=== PATIENT | female | born 1985 | race Caucasian/White ===

== ENCOUNTER → 2017-12-28 | Outpatient (REF) | payer BC ==
[2017-12-28 17:01] LABS: APPEARANCE, URINE TURBID (CLEAR); BACTERIA, URINE AUTO 1+ (NEGATIVE); BILIRUBIN, URINE AUTO NEGATIVE (NEGATIVE); BLOOD, URINE BLOOD 3+ (NEGATIVE); COLOR, URINE YELLOW (YELLOW); GLUCOSE, URINE (UA) AUTO NEGATIVE (NEGATIVE); KETONE, URINE AUTO NEGATIVE (NEGATIVE); LEUKOCYTE ESTERASE, URINE AUTO 3+ (NEGATIVE); MUCUS, URINE SMALL (NEGATIVE); NITRITE, URINE AUTO NEGATIVE (NEGATIVE); PROTEIN, URINE AUTO 2+ mg/dL (NEGATIVE); RBC, URINE AUTO TNTC /HPF (0-3); SPECIFIC GRAVITY URINE AUTO 1.024 (1.002-1.035); SQUAMOUS EPITHELIAL CELL UR AU 4 /HPF (0-6); UROBILINOGEN, URINE AUTO 0.2 mg/dL (0.0-2.0); WBC, URINE AUTO TNTC /HPF (0-3)
== END ==
LOC: M LAB REF 15:58
DX: N39.0 Urinary tract infection, site not specified (principal)
CPT/HCPCS: 81001

== ENCOUNTER → 2019-10-19 | Outpatient (CLI) | payer BC ==
[~2019-10-19] MED LIST: ANUS2.5C2 TOP; DOCU5LIQ PO; IBUP100S44 PO; MAPA500T17 PO; MILK10SU PO
[2019-10-19 16:02] LABS: BASO % 0.2 % (0.0-1.0); EOS # 0.2 10^3/uL (0.0-0.5); EOS % 1.8 % (0.0-3.0); HEMATOCRIT 39.1 % (36.0-47.0); HEMOGLOBIN 13.3 g/dl (12.0-15.5); LYMPH # 1.7 10^3/uL (1.5-5.0); LYMPH % 17.5 % (24.0-44.0); MEAN CORPUSCULAR HEMOGLOBIN 29.6 pg (27.0-33.0); MEAN CORPUSCULAR VOLUME 87.1 fl (80.0-96.0); MONO # 0.5 10^3/uL (0.0-0.8); MONO % 5.1 % (0.0-5.0); NEUTROPHILS # 7.1 10^3/uL (1.5-8.5); NEUTROPHILS % 75.2 % (36.0-66.0); PLATELET COUNT, AUTOMATED 279 10^3/uL (150-450); RED BLOOD COUNT 4.49 10^6/uL (4.00-5.40); WHITE BLOOD COUNT 9.5 10^3/uL (4.0-10.0)
[2019-10-19 18:15] LABS: HEPATITIS C VIRUS ABY INDEX 0.3 INDEX (<0.8); HIV 1&2 SCREEN CENTAUR NEGATIVE (NEGATIVE)
[2019-10-19 20:00] LABS: CHLAMYDIA DNA AMPLIFICATION NEGATIVE (NEGATIVE); GC DNA AMPLIFICATION NEGATIVE (NEGATIVE)
== END ==
LOC: M PLALAB 11:03
PROVIDERS: ATTEND Advanced Practice Midwife
DX: O09.522 Supervision of elderly multigravida, second trimester (principal); Z3A.00 Weeks of gestation of pregnancy not specified

== ENCOUNTER → 2019-10-31 | Outpatient (CLI) | payer BC ==
--- NOTE | 2019-11-16 13:24 | REP ---
COMPLETE OBSTETRICAL ULTRASOUND CLINICAL: Anatomical assessment. TECHNIQUE: Transabdominal obstetrical ultrasound with color Doppler evaluation. FINDINGS: Ultrasound examination demonstrates a single live intrauterine in variable presentation. Placenta noted anteriorly and grade 1 without evidence for placenta previa or abruption. Amniotic fluid volume is normal. Cervix measures 3.8 cm in length and appears closed. No evidence for nuchal cord. Gestational age by last menstrual period (LMP) 21 weeks 6 days with estimated date of delivery 03/06/2020. Gestational age by current measurements 22 weeks 1 day with estimated date of delivery 03/04/2020. heart rate 158 beats per minute. Estimated weight 488 grams (62nd percentile). Anatomical assessment demonstrates normal cranium, ventricles, choroid plexus, cerebellum, posterior fossa, facial features, diaphragm, stomach, kidneys, bladder, spine, extremities, and three-vessel cord. Limited evaluation of the heart and cardiac ventricular outflow tracts noted. IMPRESSION: * Single live intrauterine in variable presentation demonstrating appropriate estimated weight and growth. * Limited evaluation of the four chamber heart and cardiac ventricular outflow tracts may warrant reevaluation and followup. Remainder of the anatomical assessment is complete and normal. MTDD
== END ==
LOC: M WHC 13:31
PROVIDERS: ATTEND Advanced Practice Midwife
DX: Z34.82 Encounter for supervision of other normal pregnancy, second trimester (principal)

== ENCOUNTER → 2020-02-21 | Outpatient (REF) | payer BC | LOC: M SFHCWAGY 17:04 | PROVIDERS: ATTEND Specialist | DX: Z34.83 Encounter for supervision of other normal pregnancy, third trimester (principal) ==

== ENCOUNTER 2020-03-08 08:35 | Inpatient (IN) | payer BC ==
[~2020-03-08] VITALS: Ht 165.1 cm; Wt 104.7 kg
[2020-03-08] VITALS (24 sets, daily range): BP systolic 107–139; BP diastolic 58–86
[2020-03-08] MEDS ORDERED: TUMS500C PO (08:56)
[2020-03-08] MEDS ORDERED: LACTATED RINGER'S 1000 ML IV STA (08:56)
[2020-03-08] MEDS ORDERED: LR 1,000 ML IV SCH (09:29)
[2020-03-08] MEDS ORDERED: OXYTOCIN DRIP 30 UNITS in IV 1 EA IV SCH ×2 (09:30→20:55)
[2020-03-08 09:31] LABS: HEMATOCRIT 32.5 % (36.0-47.0); HEMOGLOBIN 10.8 g/dl (12.0-15.5); MEAN CORPUSCULAR HEMOGLOBIN 26.5 pg (27.0-33.0); MEAN CORPUSCULAR HGB CONC 33.2 g/dl (32.0-36.5); MEAN CORPUSCULAR VOLUME 79.7 fl (80.0-96.0); PLATELET COUNT, AUTOMATED 294 10^3/uL (150-450); RED BLOOD COUNT 4.08 10^6/uL (4.00-5.40); WHITE BLOOD COUNT 10.8 10^3/uL (4.0-10.0)
--- NOTE | 2020-03-08 09:35 | HPEPDOC ---
Obstetrical History & Physical General Date of Admission Mar 08, 2020 at 08:35 History of Present Illness Krissy is a 34 y/o who presents today for an IOL for advanced maternal a ge. She started care in the 2nd trimester at [facility], and has had limited care since, otherwise uncomplicated . Reports active movement. Denies LOF, vaginal bleeding, regular UC. Denies SOB, chest pain, nausea, headaches. Chief Complaint: Induction of labor (Advanced Maternal Age) Information Provided By: Patient Age: 34 : 7 Term: 6 Pre-term: 0 Abortions: 0 Livin Care Care: Limited Care Dating Final EDC: Mar 06, 2020 Final EDC by: LMP LMP: May 31, 2019 Estimated Date of Confinement: Mar 06, 2020 EGA at Admission: 40.2 Antepartum Course Diagnos(e)s Advanced Maternal Age Height (inches): 65 Admission Weight (lbs.): 230 Past Medical History Past Obstetrical History #1: Past Obstetrical History: Primgravida Date of Delivery: May 03, 2005 Gestation: 41 Type of Delivery: Spontaneous Vaginal Del. Sex of Infant: Female (8lb) Complications: No Past Obstetrical History #2: Past Obstetrical History: Multigravida Date of Delivery: Jan 25, 2007 Gestation: 37.2 Type of Delivery: Spontaneous Vaginal Del. Sex of : Male (7lb 8oz) Past Obstetrical History #3: Past Obstetrical History: Multigravida Date of Delivery: May 26, 2008 Gestation: 41 Type of Delivery: Spontaneous Vaginal Del. Sex of : Female (9lb) Complications: No Past Obstetrical History #4: Past Obstetrical History: Multigravida Date of Delivery: Sep 24, 2009 Gestation: 41 Type of Delivery: Spontaneous Vaginal Del. Sex of Infant: Female (8lb) Complications: No Past Obstetrical History #5: Past Obstetrical History: Multigravida Date of Delivery: Dec 03, 2012 Gestation: 41 Type of Delivery: Spontaneous Vaginal Del. Sex of Infant: Female (8lb) Complications: No Past Obstetrical History #6: Past Obstetrical History: Multigravida Date of Delivery: Oct 08, 2015 Gestation: 41 Type of Delivery: Spontaneous Vaginal Del. Sex of Infant: Female (8lb) Complications: No [place] History: No pertinent history Past Medical History Medical History Denies Surgical History: Denies/None Family History Significant Family History: Cancer (MGM- Skin Cancer) Social History Marital Status: Family situation: Spouse/partner home (Damon Yip) Psychosocial History: No pertinent psych hx * Smoker: non-smoker Alcohol: Denies Drugs: denies Imunizations Tdap status: needs Influenza Status: needs Allergies Coded Allergies: No Known Drug Allergies (Verified Allergy, Unknown, 03/08/20) Medications Scheduled Calcium Carbonate (Tums) 200 Mg Tab.chew, 2 TAB PO PRN Physical Examination Physical Examination GENERAL: Alert and oriented times three. BREAST: . ABDOMEN: Gravid and non-tender to touch. FETUS: Is vertex (VTX) by sterile vaginal examination (SVE), fetus is vertex (VTX) by Boris. EFW 8-8.5lbs by Boris's. HEART RATE: Regular rate and rhythm. LUNGS: Clear to auscultation (CTA) bilaterally. EXTREMITIES: No edema. No clonus. Deep tendon reflexes (DTRs) + 2. Laboratory Data 24H [facility] Laboratory Tests 2 03/08/20 08:43: Serology Scanned Report Hepatitis B Testing Pertinent Laboratoy Data Blood Type: O+ RBC Antibody Screen: Negative HIV: Negative Hepatitis B: Negative Hepatitis C: Negative Rapid Plasma Reagin: Nonreactive Rubella: Immune Chlamydia/Gonorrhea: Negative Group B Streptococcus: Negative Anatomy Ultrasound Ultrasound Date: Oct 31, 2019 Placenta Location: Anterior Normal Anatomy: Yes (Suboptimal views of the heart and VOTs, she did not do the F/U Ultrasound) Placenta Previa: No Estimated Weight (grams): 488 Steroid Therapy Steroid Therapy: No Vaginal Examination Dilation: 3 cm (3-4) Effacement: 60% Station: -2 Cervical Consistency: Soft Cervical Position: Posterior Presentation: Cephalic presentation Assessment Heart Rate (FHR): 140 Variability: Moderate Accelerations: Positive Decelerations: None Tocometer Contractions: Yes Frequency: irregular Duration: less than 60 seconds Strength: palpated as mild, resting tone palp/soft Multi-drug resistant Organism: No history of MDRO Assessment/Plan Assessment IUP at 40.2weeks IOL for Advanced Maternal Age Grandmultiparity Poor Compliance with PNC GBS negative Plan Admit and orient to Labor and Delivery. Global Manager and consent. Diet: Clear liquids. Activity as tolerated. Group B Streptococcus (GBS) negative. Labs and intravenous (IV) per unit protocol. Hemoglobin A1C, no GTT on record. Counseled on Pitocin and induction of labor (IOL). Lactated Ringers (LR): Bolus 500 mL, then per Pitocin protocol. Anticipate normal spontaneous delivery (). C-S as appropriate. Dasha Lee CNM Mar 08, 2020 09:19
[2020-03-08 10:53] LABS: HEMOGLOBIN A1c 5.3 %
--- NOTE | 2020-03-08 15:23 | IPNPDOC ---
Text Note Date of Service The patient was seen on 03/08/20. NOTE Inpatient Krissy is feeling some more contractions, but declined intervention need at this time. Denies vaginal bleeding. Difficulty tracing FHR due to movement and amount of amniotic fluid. AROM clear fluid for copious amount. FSE placed after various attempts of trac ing FHR externally. FHR 150bpm, moderate variability, no decelerations, no accelerations UC 1-2 min, 60-80seconds long, mild to moderate, resting tone soft. SVE 3-4/70/-2, posterior, soft/stretchy Pitocin turned down to 6mu/min. Anticipate VS,Fishbone, I+O VS, Fishbone, I+O Laboratory Tests 03/08/20 09:16 Vital Signs Date Time Temp Pulse Resp B/P (MAP) Pulse Ox O2 Delivery O2 Flow Rate FiO2 03/08/20 10:45 91 130/82 (98) 03/08/20 09:17 98.9 20 Dasha Lee CNM Mar 08, 2020 15:23
--- NOTE | 2020-03-08 16:39 | IPNPDOC ---
Text Note Date of Service The patient was seen on 03/08/20. NOTE Inpatient Krissy is uncomfortable and requesting IV pain medication SVE 4-5/80/0, midposition, soft by DOUG Arroyo Category 1 FHT, UC not tracing well Pitocin at 10mu/min. Stadol 2mg IVP and Phenergan 12.5mg IVP ordered. VS,Fishbone, I+O VS, Fishbone, I+O Laboratory Tests 03/08/20 09:16 Vital Signs Date Time Temp Pulse Resp B/P (MAP) Pulse Ox O2 Delivery O2 Flow Rate FiO2 03/08/20 15:24 84 139/86 (103) 03/08/20 14:55 98.7 18 Dasha Lee CNM Mar 08, 2020 16:39
[2020-03-08] MEDS ORDERED: PROMETHAZINE INJ 25 MG/ML VIAL (J2550) IV ONE (16:45)
[2020-03-08] MEDS ORDERED: BUTORPHANOL 2 MG/ML INJ (J0595) IV ONE (16:45)
[2020-03-08] MEDS ORDERED: METHYLERGONOVINE MALEATE 0.2 MG/ML VIAL (J2210) IM ONE (19:45)
[2020-03-08] MEDS ORDERED: RHOGAM 300 MCG (1500 IU) INJ (J2790) IM SCH (21:00)
[2020-03-08] MEDS ORDERED: DOCUSATE SODIUM 100MG CAPSULE PO PRN (21:00)
[2020-03-08] MEDS ORDERED: IBUPROFEN 800 MG TAB PO PRN (21:00)
[2020-03-08] MEDS ORDERED: ACETAMINOPHEN 500 MG TAB PO PRN (21:00)
[2020-03-08] MEDS ORDERED: BENZOCAINE 20% HEMORRHOIDAL OINTMENT 28GM TUBE TOP PRN (21:00)
[2020-03-08] MEDS ORDERED: ANUSOL HC CREAM 30GM TOP PRN (21:00)
[2020-03-08] MEDS ORDERED: ACETAMINOPHEN TAB 650MG DOSE (2X325MG) PO PRN (21:00)
[2020-03-08] MEDS ORDERED: MEASLES,MUMPS,RUBELLA VACCINE INJ (MMR-II) (90707) SC SCH (21:00)
[2020-03-08] MEDS ORDERED: IBUPROFEN 600MG TAB PO PRN (21:00)
[2020-03-08] MEDS ORDERED: MOM 30ML SUSPENSION UDC PO PRN (21:00)
--- NOTE | 2020-03-08 21:04 | DNPDOC ---
[facility] Delivery Note Delivery Note DATE OF DELIVERY: 03/08/2020 @ 2030 PREDELIVERY DIAGNOSIS: 40-2/7 weeks' gestation and IOL for AMA. POST DELIVERY DIAGNOSIS: Delivered. PROCEDURE: Spontaneous vaginal delivery PROVIDER: Ayan Lee CNM and DOUG Arroyo ANESTHESIA: None ESTIMATED BLOOD LOSS: 200 mL. FINDINGS: 8 pound 11 ounce, 3930g Male , Score 9/10, left compound hand. DELIVERY SUMMARY: Krissy is a 34-year-old 7 now para 7-0-0-7 who was ad mitted to labor and delivery for IOL for AMA. Pitocin was started with AROM at 1505. She received 1 dose of Stadol and Phenergan for labor pain management. Progression to full dilation at 2025. She began pushing with strong maternal efforts at 2029. head delivered LOT with restitution to direct OP with compound left hand tucked under left cheek. With strong maternal pushing efforts shoulder and corpus followed with ease. placed skin to skin on maternal abdomen, vigorous and pink. Delayed cord clamping until pulsations ceased. Cord clamped x2 and cut by FOB. Cord blood collected. Intact placenta via Dickens mechanism delivered with maternal pushing effort at 2038. Fundal massage, IV Pitocin bolus started, and IM Methergine given. Fundus firmed to U- 2 with small lochia. Vagina, perineum, and cervix examined to be intact, perineal abrasion hemostatic. Sponges counted and correct. Parents plan to name him "Zach" and breastfeed. Dasha Lee CNM Mar 08, 2020 21:04
[2020-03-09] MEDS: METHYLERGONOVINE MALEATE 0.2 MG TAB PO SCH ×4 (02:38→20:40)
[2020-03-09 05:37] VITALS: BP 134/75
--- NOTE | 2020-03-09 07:27 | IPNPDOC ---
Text Note Date of Service The patient was seen on 03/09/20. NOTE Inpatient Subjective: Krissy is a 34 y/o G7 now [id number] s/p over an intact perineum, Day #1. Reports voiding spontaneously, tolerating liquids, minimal lochia, and ambulating without difficulty. without issue. Pain well controlled with Tylenol and Motrin. Desires a BTL for future control. imaging scheduler made aware. Denies chest pain, SOB, headaches, visual changes, nausea/vomiting. Objective: Vital Signs: Normotensive, afebrile. General: Alert and oriented x3. Respiratory: Regular rate, no accessory muscle use. Abdomen: Soft, nontender, no distension. Fundus firm midline at U. Extremities: No edema. No calf tenderness. Minimal lochia. Assessment: Day #1 Plan: 1. Tylenol and Motrin as needed. 2. May shower today. 3. Nursing care per policy. 4. Encourage ambulation and . VS,Fishbone, I+O VS, Fishbone, I+O Laboratory Tests 03/08/20 09:16 Vital Signs Date Time Temp Pulse Resp B/P (MAP) Pulse Ox O2 Delivery O2 Flow Rate FiO2 03/09/20 05:37 97.9 86 16 134/75 (94) I&O- Last 24 Hours up to 6 AM 03/09/20 06:00 Intake Total 2989 ml Output Total 3600 ml Balance -611 ml Dasha Lee CNM Mar 09, 2020 07:16
[2020-03-09] MEDS: PRENATAL VITAMINS CHEWABLE TABLET PO SCH (08:49)
[2020-03-09 18:05] VITALS: BP 143/83
[2020-03-10] MEDS: METHYLERGONOVINE MALEATE 0.2 MG TAB PO SCH ×2 (02:40→07:34)
[2020-03-10 06:00] VITALS: BP 128/69
[2020-03-10] MEDS: PRENATAL VITAMINS CHEWABLE TABLET PO SCH (08:22)
== END 2020-03-10 13:50 | disposition home or self-care (01) | DRG 560 ==
LOC: M LDI 08:35 → M OBS 22:22
PROVIDERS: ADMIT Advanced Practice Midwife; ATTEND Advanced Practice Midwife
PROC: 10E0XZZ Delivery of Products of Conception, External Approach (ICD-10-PCS; principal; 2020-03-08)
PROC: 10907ZC Drainage of Amniotic Fluid, Therapeutic from Products of Conception, Via Natural or Artificial Opening (ICD-10-PCS; 2020-03-08)
PROC: 3E033VJ Introduction of Other Hormone into Peripheral Vein, Percutaneous Approach (ICD-10-PCS; 2020-03-08)
DX: O32.6XX0 Maternal care for compound presentation, not applicable or unspecified (principal); O48.0 Post-term pregnancy; Z37.0 Single live birth; O09.523 Supervision of elderly multigravida, third trimester; Z3A.40 40 weeks gestation of pregnancy

== ENCOUNTER → 2020-08-21 | Outpatient (CLI) | payer BC ==
[~2020-08-21] MED LIST changes: +IBUP-1022 PO; +OXYC1TAB23 PO; +TUMS500C PO
== END ==
LOC: M LABSMTC 13:20
PROVIDERS: ATTEND Anesthesiology
DX: Z01.812 Encounter for preprocedural laboratory examination (principal)

== ENCOUNTER 2020-08-22 06:10 | Day surgery (SDC) | payer BC ==
[~2020-08-22] VITALS: Ht 165.1 cm; Wt 99.7 kg
[~2020-08-22 06:10] MED LIST changes: -IBUP-1022 PO; +LIDOCAINE 1% MDV 20ML VIAL SQ PRN; +LR 1,000 ML IV ONE; -OXYC1TAB23 PO
[2020-08-22 06:36] LABS: HEMATOCRIT 39.5 % (36.0-47.0); HEMOGLOBIN 12.2 g/dl (12.0-15.5); MEAN CORPUSCULAR HEMOGLOBIN 23.1 pg (27.0-33.0); MEAN CORPUSCULAR HGB CONC 30.9 g/dl (32.0-36.5); MEAN CORPUSCULAR VOLUME 74.7 fl (80.0-96.0); PLATELET COUNT, AUTOMATED 370 10^3/uL (150-450); RED BLOOD COUNT 5.29 10^6/uL (4.00-5.40); WHITE BLOOD COUNT 9.6 10^3/uL (4.0-10.0)
[2020-08-22] MEDS ORDERED: MIDAZOLAM INJ 2MG/2ML VIAL (J2250 PER 1MG) As Ordered ONE (06:58)
[2020-08-22] MEDS ORDERED: fentaNYL 100 MCG/2 ML INJECTION (J3010) As Ordered ONE (06:59)
[2020-08-22] MEDS ORDERED: ACETAMINOPHEN 1000MG 100ML IV BTL (OFIRMEV) (J0131 PER 10MG) As Ordered ONE (06:59)
[2020-08-22] MEDS ORDERED: dexameTHASONE 4 MG/ML 1ML VIAL (J1100 PER 1MG) As Ordered ONE (07:00)
[2020-08-22] MEDS ORDERED: propofoL 200 MG/20 ML VIAL As Ordered ONE (07:03)
[2020-08-22] MEDS ORDERED: ROCURONIUM BROMIDE 50 MG/5 ML VIAL As Ordered ONE (07:04)
[2020-08-22] MEDS ORDERED: LIDOCAINE 2% 100MG/5ML SDV (FOR ANES.) As Ordered ONE (07:05)
[2020-08-22] MEDS ORDERED: METOCLOPRAMIDE INJ 10MG/2ML VIAL (J2765 PER 1) As Ordered ONE (07:10)
[2020-08-22] MEDS ORDERED: ONDANSETRON 4MG/2ML VIAL As Ordered ONE (07:10)
[2020-08-22] MEDS ORDERED: SUGAMMADEX SODIUM 500 MG/5 ML VIAL (BRIDION) As Ordered ONE (07:11)
[2020-08-22] MEDS ORDERED: KETOROLAC 60MG 2ML VIAL As Ordered ONE (07:11)
[2020-08-22] MEDS ORDERED: BUPIVACAINE HCL 0.25% 30ML VIAL As Ordered ONE (07:11)
[2020-08-22] MEDS ORDERED: HYDROMORPHONE HCL 0.5 MG/ 0.5 ML SYRINGE (J1170 PER 1) IV PRN (08:25)
[2020-08-22] MEDS ORDERED: ONDANSETRON 4MG/2ML VIAL IV PRN (08:25)
[2020-08-22] MEDS ORDERED: fentaNYL 100 MCG/2 ML INJECTION (J3010) IV PRN (08:25)
[2020-08-22] MEDS ORDERED: oxyCODONE 5MG TAB PO PRN (08:25)
[2020-08-22] MEDS ORDERED: LR 1,000 ML IV SCH ×2 (08:25→08:35)
[2020-08-22] MEDS ORDERED: PERCOCET 5MG/325MG TAB PO PRN (08:35)
[2020-08-22] MEDS ORDERED: OXYC1TAB23 PO (09:27)
[2020-08-22] MEDS ORDERED: IBUP-1022 PO (09:28)
[2020-08-22 09:58] VITALS: BP 101/51
--- NOTE | 2020-08-22 10:04 | ROOPDOC ---
[facility] Report Of Operation Report of Operation DATE OF PROCEDURE: 08/22/20 PREPROCEDURE DIAGNOSES: Undesired fertility. POSTPROCEDURE DIAGNOSES: Same. PROCEDURE PERFORMED: Laparoscopic bilateral salpingectomy. SURGEON: Maricel Angeles MD ANESTHESIA: GETA. ESTIMATED BLOOD LOSS: Approximately 10 mL. COMPLICATIONS: none. FINDINGS: Normal uterus fallopian tubes and ovaries. Normal upper abdomen. SPECIMENS REMOVED: Bilateral fallopian tubes PROCEDURE NOTE: The patient was taken to the operating room where general endotracheal anesthesia was induced. She was prepped and draped in a sterile fashion in the dorsal lithotomy position. A sponge stick was placed in the vagina to use as a manipulator. A periumbilical incision was made with a scalpel. A Veress needle was placed through this incision while tenting up on the skin of the abdomen. An intra-abdominal location the Veress needle was assessed with the use of a saline filled syringe. A pneumoperitoneum was created. The Veress needle was removed. A 5 mm trocar using Visiport was inserted through this incision. A 5 and 8 mm suprapubic port were placed under direct visualization. A grasping instrument was used to elevate each fallopian tube. A LigaSure device was used to coagulate and incise broad ligament attachments to the fallopian tube. Both tubes were excised near their origin. Both tubes were removed through the suprapubic port. The pneumoperitoneum was released. All instruments were removed. The skin was closed with 4-0 Monocryl subcuticular sutures. Sponge instrument and needle counts were correct. The patient went to the recovery room in stable condition. MARICEL ANGELES MD Aug 22, 2020 10:04
== END 2020-08-22 09:58 | disposition home or self-care (01) ==
LOC: M SDC 06:10
PROVIDERS: ATTEND Specialist
DX: Z30.2 Encounter for sterilization (principal)
CPT/HCPCS: 36415; 58661; 81025; 85027; 88302; J0131; J1100; J1885; J2250; J2405; J2765; J3010

== ENCOUNTER → 2022-01-03 | Outpatient (REF) | payer BC ==
[~2022-01-03] MED LIST changes: +IBUP-1022 PO; -LIDOCAINE 1% MDV 20ML VIAL SQ PRN; -LR 1,000 ML IV ONE; +OXYC1TAB23 PO
== END ==
LOC: EEVIPCON 18:59 → M WUC 18:59
PROVIDERS: ATTEND Student in an Organized Health Care Education/Training Program
DX: R30.0 Dysuria (principal)

== ENCOUNTER → 2022-01-12 | Outpatient (REF) | payer BC | LOC: M LAB REF 16:11 | PROVIDERS: ATTEND Student in an Organized Health Care Education/Training Program | DX: R30.0 Dysuria (principal) ==

== ENCOUNTER → 2022-02-11 | Outpatient (REF) | payer BC | LOC: M LABWUC 19:04 | PROVIDERS: ATTEND Physician Assistant | DX: N30.01 Acute cystitis with hematuria (principal) ==

== ENCOUNTER → 2022-03-26 | Outpatient (REF) | payer BC ==
[2022-03-26 16:47] LABS: BASO % 0.3 % (0.0-1.0); EOS % 0.3 % (0.0-3.0); HEMATOCRIT 35.6 % (36.0-47.0); HEMOGLOBIN 10.9 g/dl (12.0-15.5); LYMPH % 17.4 % (24.0-44.0); MEAN CORPUSCULAR HGB CONC 30.6 g/dl (32.0-36.5); MEAN CORPUSCULAR VOLUME 71.9 fl (80.0-96.0); MONO # 0.7 10^3/uL (0.0-0.8); MONO % 6.2 % (2.0-8.0); NEUTROPHILS # 8.8 10^3/uL (1.5-8.5); NEUTROPHILS % 75.5 % (36.0-66.0); PLATELET COUNT, AUTOMATED 391 10^3/uL (150-450); RED BLOOD COUNT 4.95 10^6/uL (4.00-5.40); WHITE BLOOD COUNT 11.6 10^3/uL (4.0-10.0)
[2022-03-26 17:21] LABS: ALBUMIN 3.9 G/DL (3.2-5.2); ALKALINE PHOSPHATASE 147 U/L (46-116); ALT/SGPT 21 U/L (7.0-40); AST/SGOT 20 U/L (<34); BILIRUBIN,TOTAL 0.7 MG/DL (0.3-1.2); BLOOD UREA NITROGEN 14 MG/DL (9-23); CARBON DIOXIDE LEVEL 24 MMOL/L (20-31); CHLORIDE LEVEL 99 MMOL/L (98-107); CREATININE FOR GFR 0.61 MG/DL (0.55-1.30); GLOMERULAR FILTRATION RATE > 60.0 (>60); GLUCOSE, FASTING 83 MG/DL (60-100); POTASSIUM SERUM 3.8 MMOL/L (3.5-5.1); SODIUM LEVEL 135 MMOL/L (136-145); THYROID STIMULATING HORMONE 1.878 uIU/ML (0.55-4.78); TOTAL PROTEIN 7.7 G/DL (5.7-8.2)
[2022-03-26 17:27] LABS: MONO SCRN NEGATIVE (NEGATIVE)
== END ==
LOC: M LAB REF 16:27
PROVIDERS: ATTEND Physician Assistant
DX: B34.9 Viral infection, unspecified (principal)

== ENCOUNTER → 2022-04-30 | Outpatient (CLI) | payer BC ==
[2022-04-30 14:38] LABS: APPEARANCE, URINE HAZY (CLEAR); BACTERIA, URINE AUTO 1+ (NEGATIVE); BILIRUBIN, URINE AUTO NEGATIVE (NEGATIVE); BLOOD, URINE BLOOD 1+ (NEGATIVE); COLOR, URINE YELLOW (YELLOW); GLUCOSE, URINE (UA) AUTO NEGATIVE (NEGATIVE); KETONE, URINE AUTO NEGATIVE (NEGATIVE); LEUKOCYTE ESTERASE, URINE AUTO 3+ (NEGATIVE); MUCUS, URINE SMALL (NEGATIVE); NITRITE, URINE AUTO NEGATIVE (NEGATIVE); PROTEIN, URINE AUTO 1+ mg/dL (NEGATIVE); RBC, URINE AUTO 15 /HPF (0-3); SPECIFIC GRAVITY URINE AUTO 1.014 (1.002-1.035); SQUAMOUS EPITHELIAL CELL UR AU 7 /HPF (0-6); UROBILINOGEN, URINE AUTO 0.2 mg/dL (0.0-2.0); WBC, URINE AUTO 61 /HPF (0-3)
[2022-04-30 14:57] LABS: HEMATOCRIT 35.3 % (36.0-47.0); HEMOGLOBIN 10.8 g/dl (12.0-15.5); MEAN CORPUSCULAR HEMOGLOBIN 22.6 pg (27.0-33.0); MEAN CORPUSCULAR HGB CONC 30.6 g/dl (32.0-36.5); MEAN CORPUSCULAR VOLUME 73.8 fl (80.0-96.0); PLATELET COUNT, AUTOMATED 401 10^3/uL (150-450); RED BLOOD COUNT 4.78 10^6/uL (4.00-5.40); WHITE BLOOD COUNT 7.2 10^3/uL (4.0-10.0)
[2022-04-30 15:07] LABS: ERYTHROCYTE SEDIMENTATION RATE 32 mm/hr (0-20)
[2022-04-30 15:34] LABS: THYROID STIMULATING HORMONE 2.569 uIU/ML (0.55-4.78); TOTAL 25(OH) VITAMIN D 23.6 NG/ML (20.0-100.0)
[2022-04-30 16:11] LABS: ALKALINE PHOSPHATASE 81 U/L (46-116); ALT/SGPT 12 U/L (7.0-40); AST/SGOT 14 U/L (<34); BILIRUBIN,TOTAL 0.5 MG/DL (0.3-1.2); BLOOD UREA NITROGEN 11 MG/DL (9-23); CALCIUM LEVEL 8.7 MG/DL (8.5-10.1); CARBON DIOXIDE LEVEL 26 MMOL/L (20-31); CHLORIDE LEVEL 105 MMOL/L (98-107); CHOLESTEROL LEVEL 143 MG/DL (<200); CHOLESTEROL RISK RATIO 3.04 (<5); CREATININE FOR GFR 0.66 MG/DL (0.55-1.30); GLOMERULAR FILTRATION RATE > 60.0 (>60); GLUCOSE, FASTING 71 MG/DL (60-100); POTASSIUM SERUM 4.2 MMOL/L (3.5-5.1); SODIUM LEVEL 139 MMOL/L (136-145); TOTAL PROTEIN 7.5 G/DL (5.7-8.2); TRIGLYCERIDES LEVEL 60 MG/DL (<150)
[2022-04-30 16:13] LABS: VITAMIN B12 LEVEL 373 PG/ML (211-911)
[2022-04-30 18:31] LABS: MONO SCRN NEGATIVE (NEGATIVE)
== END ==
LOC: M LAB 12:50
PROVIDERS: ATTEND Nurse Practitioner Family
DX: R53.83 Other fatigue (principal)

== ENCOUNTER → 2022-06-02 | Outpatient (CLI) | payer BC ==
[2022-06-02 09:27] LABS: APPEARANCE, URINE HAZY (CLEAR); BACTERIA, URINE AUTO 1+ (NEGATIVE); BILIRUBIN, URINE AUTO NEGATIVE (NEGATIVE); BLOOD, URINE BLOOD 2+ (NEGATIVE); COLOR, URINE YELLOW (YELLOW); GLUCOSE, URINE (UA) AUTO NEGATIVE (NEGATIVE); KETONE, URINE AUTO NEGATIVE (NEGATIVE); LEUKOCYTE ESTERASE, URINE AUTO 3+ (NEGATIVE); NITRITE, URINE AUTO NEGATIVE (NEGATIVE); PROTEIN, URINE AUTO 1+ mg/dL (NEGATIVE); RBC, URINE AUTO 11 /HPF (0-3); SPECIFIC GRAVITY URINE AUTO 1.006 (1.002-1.035); SQUAMOUS EPITHELIAL CELL UR AU 0 /HPF (0-6); UROBILINOGEN, URINE AUTO 0.2 mg/dL (0.0-2.0); WBC, URINE AUTO TNTC /HPF (0-3)
[2022-06-02 09:28] LABS: BASO % 0.6 % (0.0-1.0); EOS # 0.3 10^3/uL (0.0-0.5); EOS % 6.7 % (0.0-3.0); HEMATOCRIT 38.2 % (36.0-47.0); HEMOGLOBIN 11.9 g/dl (12.0-15.5); LYMPH # 2.2 10^3/uL (1.5-5.0); LYMPH % 44.2 % (24.0-44.0); MEAN CORPUSCULAR HEMOGLOBIN 23.4 pg (27.0-33.0); MEAN CORPUSCULAR HGB CONC 31.2 g/dl (32.0-36.5); MONO # 0.4 10^3/uL (0.0-0.8); MONO % 7.6 % (2.0-8.0); NEUTROPHILS % 40.7 % (36.0-66.0); PLATELET COUNT, AUTOMATED 312 10^3/uL (150-450); RED BLOOD COUNT 5.09 10^6/uL (4.00-5.40); WHITE BLOOD COUNT 4.9 10^3/uL (4.0-10.0)
[2022-06-02 09:57] LABS: C REACTIVE PROTEIN QUANTITATIV < 0.40 MG/DL (<1.0)
[2022-06-02 09:58] LABS: BLOOD UREA NITROGEN 9 MG/DL (9-23); CALCIUM LEVEL 8.1 MG/DL (8.5-10.1); CARBON DIOXIDE LEVEL 27 MMOL/L (20-31); CHLORIDE LEVEL 107 MMOL/L (98-107); CREATININE FOR GFR 0.63 MG/DL (0.55-1.30); GLOMERULAR FILTRATION RATE > 60.0 (>60); GLUCOSE, FASTING 79 MG/DL (60-100); SODIUM LEVEL 138 MMOL/L (136-145)
[2022-06-02 09:59] LABS: IRON (FE) 14 UG/DL (50-170); PERCENT SATURATION 3.7 % (13.2-45.0); TOTAL IRON BINDING CAPACITY 375 UG/DL (250-425)
[2022-06-02 10:01] LABS: FERRITIN 4.7 NG/ML (7.3-270.7); FOLATE 12.8 NG/ML (>5.4); TOTAL 25(OH) VITAMIN D 25.4 NG/ML (20.0-100.0); VITAMIN B12 LEVEL 456 PG/ML (211-911)
[2022-06-02 10:20] LABS: ERYTHROCYTE SEDIMENTATION RATE 8 mm/hr (0-20)
== END ==
LOC: M RAD 08:13 → M LAB 08:13
PROVIDERS: ATTEND Nurse Practitioner Family
DX: N39.0 Urinary tract infection, site not specified (principal); E55.9 Vitamin D deficiency, unspecified; R70.0 Elevated erythrocyte sedimentation rate; R31.29 Other microscopic hematuria; D50.9 Iron deficiency anemia, unspecified; N20.0 Calculus of kidney; N28.89 Other specified disorders of kidney and ureter

== ENCOUNTER → 2022-06-23 | Outpatient (CLI) | payer BC | LOC: M WHC 08:21 | PROVIDERS: ATTEND Advanced Practice Midwife | DX: Z53.9 Procedure and treatment not carried out, unspecified reason (principal) ==

== ENCOUNTER → 2022-06-23 | Outpatient (REF) | payer BC | LOC: M PLALAB 11:04 | PROVIDERS: ATTEND Advanced Practice Midwife | DX: Z12.4 Encounter for screening for malignant neoplasm of cervix (principal); R87.612 Low grade squamous intraepithelial lesion on cytologic smear of cervix (LGSIL) | CPT/HCPCS: 87624; G0123 ==

== ENCOUNTER 2022-07-19 22:13 | Emergency (ER) | payer BC ==
[~2022-07-19] VITALS: Ht 167.6 cm; Wt 85.1 kg
[2022-07-19 23:26] LABS: BASO % 0.3 % (0.0-1.0); EOS # 0.1 10^3/uL (0.0-0.5); EOS % 0.4 % (0.0-3.0); HEMATOCRIT 36.6 % (36.0-47.0); HEMOGLOBIN 11.6 g/dl (12.0-15.5); LYMPH # 1.3 10^3/uL (1.5-5.0); LYMPH % 8.8 % (24.0-44.0); MEAN CORPUSCULAR HEMOGLOBIN 23.7 pg (27.0-33.0); MEAN CORPUSCULAR HGB CONC 31.7 g/dl (32.0-36.5); MEAN CORPUSCULAR VOLUME 74.7 fl (80.0-96.0); MONO # 0.7 10^3/uL (0.0-0.8); MONO % 5.1 % (2.0-8.0); NEUTROPHILS # 12.4 10^3/uL (1.5-8.5); NEUTROPHILS % 84.9 % (36.0-66.0); PLATELET COUNT, AUTOMATED 311 10^3/uL (150-450); WHITE BLOOD COUNT 14.6 10^3/uL (4.0-10.0)
[2022-07-19 23:57] LABS: LIPASE 35 U/L (12-53)
[2022-07-19 23:59] LABS: ALBUMIN 4.1 G/DL (3.2-5.2); ALKALINE PHOSPHATASE 81 U/L (46-116); ALT/SGPT 14 U/L (7.0-40); AST/SGOT 12 U/L (<34); BILIRUBIN,DIRECT 0.2 MG/DL (<0.4); BILIRUBIN,TOTAL 0.6 MG/DL (0.3-1.2); BLOOD UREA NITROGEN 15 MG/DL (9-23); CALCIUM LEVEL 8.7 MG/DL (8.5-10.1); CARBON DIOXIDE LEVEL 28 MMOL/L (20-31); CHLORIDE LEVEL 105 MMOL/L (98-107); CREATININE FOR GFR 0.73 MG/DL (0.55-1.30); GLOMERULAR FILTRATION RATE > 60.0 (>60); GLUCOSE, FASTING 111 MG/DL (60-100); HCG, SERUM QUALITATIVE NEGATIVE (NEGATIVE); POTASSIUM SERUM 4.4 MMOL/L (3.5-5.1); SODIUM LEVEL 140 MMOL/L (136-145); TOTAL PROTEIN 7.2 G/DL (5.7-8.2)
[2022-07-20] MEDS ORDERED: CIPROFLOXACIN 400 MG in IV 1 EA IV ONE (03:00)
[2022-07-20] MEDS ORDERED: NS 1,000 ML IV ONE (03:20)
[2022-07-20] MEDS ORDERED: ONDANSETRON 4MG 2ML VIAL IV ONE (05:15)
[2022-07-20] MEDS ORDERED: KETOROLAC 30 MG/ML 1ML VIAL IV ONE (06:00)
[2022-07-20] MEDS ORDERED: KETO10TAB PO (06:11)
[2022-07-20] MEDS ORDERED: CIPR-249 PO (06:11)
[2022-07-20] MEDS ORDERED: ONDA4TAB6 PO (06:11)
[2022-07-20 06:30] VITALS: BP 105/56
== END 2022-07-20 06:45 | disposition home or self-care (01) ==
LOC: M ED 22:13
DX: N20.1 Calculus of ureter (principal); K44.9 Diaphragmatic hernia without obstruction or gangrene; R16.1 Splenomegaly, not elsewhere classified; Z79.2 Long term (current) use of antibiotics; Z79.83 Long term (current) use of bisphosphonates; Z79.899 Other long term (current) drug therapy
CPT/HCPCS: 74176; 80048; 80076; 81001; 83605; 83690; 84703; 85025; 87040; 87088; 96365; 96366; 96375; 99284; J0744; J1885; J2405

== ENCOUNTER 2022-07-24 11:21 | Day surgery (SDC) | payer BC ==
[~2022-07-24] VITALS: Ht 167.6 cm; Wt 83.5 kg
[~2022-07-24 11:21] MED LIST changes: +BACT400T PO; +CIPR-249 PO; +KETO10TAB PO; +ONDA4TAB6 PO; +PIPERACILLIN/TAZOBACTAM SOD 3.375 GM in D5W MINI-BAG PLUS 50 ML IV ONE
[2022-07-24] MEDS ORDERED: LR 1,000 ML IV SCH ×2 (13:00→16:40)
[2022-07-24] MEDS ORDERED: MIDAZOLAM INJ 2MG/2ML VIAL As Ordered ONE (14:12)
[2022-07-24] MEDS ORDERED: LIDOCAINE 2% 100MG/5ML SDV (FOR ANES.) As Ordered ONE (14:12)
[2022-07-24] MEDS ORDERED: propofoL 200 MG/20 ML VIAL As Ordered ONE ×2 (14:12→16:48)
[2022-07-24] MEDS ORDERED: ONDANSETRON 4MG 2ML VIAL As Ordered ONE (14:12)
[2022-07-24] MEDS ORDERED: fentaNYL 100 MCG/2 ML INJECTION As Ordered ONE (14:12)
[2022-07-24] MEDS ORDERED: ISOVUE-300 61% 100ML VIAL As Ordered ONE (15:18)
[2022-07-24] MEDS ORDERED: ACETAMINOPHEN 1000MG 100ML IV BAG As Ordered ONE (15:18)
[2022-07-24] MEDS ORDERED: ONDANSETRON 4MG 2ML VIAL IV PRN (16:40)
[2022-07-24] MEDS ORDERED: HYDROMORPHONE HCL 0.5 MG/ 0.5 ML SYRINGE IV PRN (16:40)
[2022-07-24] MEDS ORDERED: oxyCODONE 5MG TAB PO PRN (16:40)
[2022-07-24] MEDS ORDERED: fentaNYL 100 MCG/2 ML INJECTION IV PRN (16:40)
[2022-07-24] MEDS ORDERED: SUCCINYLCHOLINE 100MG/5ML SYRINGE As Ordered ONE (16:48)
[2022-07-24] MEDS ORDERED: METOCLOPRAMIDE INJ 10MG/2ML VIAL As Ordered ONE (16:48)
[2022-07-24] MEDS ORDERED: OXYB5TAB10 PO (17:13)
[2022-07-24] MEDS ORDERED: OXYC1TAB23 PO (17:13)
[2022-07-24 17:45] VITALS: BP 119/65; TEMP 97.9; O2SAT 98
[2022-07-30 12:08] LABS: Ca Ox Monohydrate 30 % (.); Size 5x5 mm (.)
== END 2022-07-24 17:58 | disposition home or self-care (01) ==
LOC: M SDC 11:21
PROVIDERS: ATTEND Urology
DX: N20.0 Calculus of kidney (principal); Z79.899 Other long term (current) drug therapy
CPT/HCPCS: 52356; 76000; 82365; C1769; C1894; C2617; J0131; J0330; J1100; J2250; J2405; J2543; J2765; J3010; Q9967

== ENCOUNTER → 2023-02-09 | Outpatient (CLI) | payer BC ==
[~2023-02-09] MED LIST changes: +OXYB5TAB11 PO; -PIPERACILLIN/TAZOBACTAM SOD 3.375 GM in D5W MINI-BAG PLUS 50 ML IV ONE
== END ==
LOC: M RAD 14:13
PROVIDERS: ATTEND Urology
DX: N20.0 Calculus of kidney (principal)

== ENCOUNTER → 2023-12-20 | Outpatient (REF) | payer BC ==
[~2023-12-20] MED LIST changes: +ONDA-282 PO; -ONDA4TAB6 PO; -OXYB5TAB11 PO; +OXYB5TAB14 PO
[2023-12-20 17:37] LABS: APPEARANCE, URINE HAZY (CLEAR); BACTERIA, URINE AUTO NEGATIVE (NEGATIVE); BILIRUBIN, URINE AUTO NEGATIVE (NEGATIVE); BLOOD, URINE BLOOD 1+ (NEGATIVE); COLOR, URINE YELLOW (YELLOW); GLUCOSE, URINE (UA) AUTO NEGATIVE (NEGATIVE); KETONE, URINE AUTO NEGATIVE (NEGATIVE); LEUKOCYTE ESTERASE, URINE AUTO 2+ (NEGATIVE); MUCUS, URINE SMALL (NEGATIVE); NITRITE, URINE AUTO NEGATIVE (NEGATIVE); PROTEIN, URINE AUTO 1+ mg/dL (NEGATIVE); RBC, URINE AUTO 11 /HPF (0-3); SPECIFIC GRAVITY URINE AUTO 1.015 (1.002-1.035); SQUAMOUS EPITHELIAL CELL UR AU 3 /HPF (0-6); UROBILINOGEN, URINE AUTO 0.2 mg/dL (0.0-2.0); WBC, URINE AUTO 98 /HPF (0-3)
== END ==
LOC: M SMT 16:59
PROVIDERS: ATTEND Nurse Practitioner Family
DX: R30.0 Dysuria (principal)

== ENCOUNTER → 2024-08-15 | Outpatient (REF) | payer BC, OTHER ==
[2024-08-15 16:30] LABS: APPEARANCE, URINE CLEAR (CLEAR); BACTERIA, URINE AUTO NEGATIVE (NEGATIVE); BILIRUBIN, URINE AUTO NEGATIVE (NEGATIVE); BLOOD, URINE BLOOD 1+ (NEGATIVE); GLUCOSE, URINE (UA) AUTO NEGATIVE (NEGATIVE); KETONE, URINE AUTO TRACE mg/dL (NEGATIVE); LEUKOCYTE ESTERASE, URINE AUTO NEGATIVE (NEGATIVE); NITRITE, URINE AUTO POSITIVE (NEGATIVE); PROTEIN, URINE AUTO NEGATIVE (NEGATIVE); RBC, URINE AUTO 0 /HPF (0-3); SPECIFIC GRAVITY URINE AUTO 1.002 (1.002-1.035); SQUAMOUS EPITHELIAL CELL UR AU 0 /HPF (0-6); UROBILINOGEN, URINE AUTO 0.2 mg/dL (0.0-2.0); WBC, URINE AUTO 0 /HPF (0-3)
== END ==
LOC: M SMT 15:17
PROVIDERS: ATTEND Urology
DX: N39.0 Urinary tract infection, site not specified (principal)